=== PATIENT | female | born 1990 | race Caucasian/White ===

== ENCOUNTER 2023-06-21 02:25 | Day surgery (SDC) | payer OTHER, MEDICAID, SELFPAY ==
[2023-06-18 09:23] VITALS: BMI 23.1
--- NOTE | 2023-06-18 09:24 | PC.NURSE ---
Report to the Outpatient Waiting Room, entrance under the green pavilion located off [facility], at time _0600_ on date _[id number]_. Planned Procedure Time: _0730_. Time changes happen often and if your time is changed the preop area will call you the afternoon before. - You and your visitor will be asked to self-screen and do not enter if you have any COVID symptoms. - A mask is optional within the hospital at this time. Patients may have clear liquids (water, carbonated beverages, clear teas, apple juice) until 3 hours prior to surgery with a maximum of 20 ounces. - No food from midnight until time of surgery Take the following medications with a SIP of water the morning of surgery: ____Levothyroxine DO NOT STOP ANY OF YOUR OTHER PRESCRIPTION MEDICATIONS PRIOR TO SURGERY ?EXCEPT THE FOLLOWING Medications to discontinue per physician ____None Date to take last dose Please no make-up, nail macedonian, hairspray, perfume, deodorant, or body powder the day of surgery. No jewelry (including any body piercings) or valuables the day of surgery, leave them at home. Please take a shower or bath the night before, or the morning of, surgery with an antibacterial soap. Wear comfortable, loose fitting clothing. - Jewelry must be removed prior to entering the operating room. Rings and piercings that are not removed may be cut off. - The hospital will not accept responsibility for valuables. - Please leave all valuables, including medications, at home the day of surgery. If you are going home after surgery, a licensed tier truck driver must drive you home. - NO public transportation without another adult if you receive anesthesia. - We recommend that an adult stay with you for 24 hours following discharge. - We also recommend that you do not drive, make important decision, drink alcoholic beverages, or take any drugs that were not prescribed by your health care provider for at least 24 hours after your discharge time. Follow any additional instructions given to you from your surgeon. If you or anyone in your household have experienced Covid symptoms in the past week, please notify your surgeon or the nurse liaison at the phone number below for possible testing. Telephone instructions given to _Deana__and asked if any additional questions and then verbalized understanding. Patient advised to call surgeon office or pre surgery nurse liaison [phone] if any additional questions.
--- NOTE | 2023-06-20 13:04 | P.PNAN_ITS ---
Anes - Initial Pre Proc Eval Procedure: Operation Date: 06/21/23 07:30 Proposed Procedures p Diagnostic Laparoscopy with Bilateral Salpingectomy - Maria De Jesus Bartholomew DO Date/Time: 06/20/23 13:04 Surgeon: Maria De Jesus Bartholomew DO Pre Op Diagnosis: [facility] Surgical Sterilizaton Patient Data Age: 33 Gender: F Height: 1.73 m Weight: 69 kg Allergies Allergy/AdvReac Type Severity Reaction Status Date / Time ciprofloxacin Allergy Intermediate HIVES Verified 06/21/23 06:09 amoxicillin Allergy Mild Hives Verified 06/21/23 06:09 Penicillins Allergy Mild HIVES Verified 06/21/23 06:09 Home Medications Medication Instructions Recorded Confirmed Type levothyroxine 75 mcg tablet 75 mcg PO DAILY 06/18/23 06/21/23 History sertraline 50 mg tablet 50 mg PO DAILY 06/18/23 06/21/23 History Patient hx anesthesia problems: none Family hx anesthesia problems: none Results Review: All pre-operative results and documents have been reviewed as part of the pre- operative evaluation. [facility] Past Medical History Medical History (Updated 06/20/23 @ 13:04 by Vern Crump DO) Hypothyroidism Social History Social History Years smoked: 14 Smoking status: Former smoker Smoking end date: 07/19/22 Living arrangements: with family Spiritual care concerns: No Anes - Eval Final PreProcedure Day of Procedure 06/20/23 13:04 Patient weight: normal Heart: regular rate and rhythm Lungs: clear to auscultation Airway: Mallampati scale class 1 Neurological: alert and oriented Last oral intake: >/= 8 hours ASA classification: II Emergent: no Anesthetic plan: proceed Anesthesia type and monitoring: general ETT and standard monitoring Results Review: All pre-operative results and documents have been reviewed as part of the pre- operative evaluation. Informed Consent: The patient's anesthetic plan and its attendant risks and benefits were discu ssed with the patient/family/POA. Questions were solicited and answers provided to the satisfaction of the patient/family/POA.
[2023-06-21] VITALS (11 sets, daily range): BP systolic 111–130; BP diastolic 69–94; PULSE 59–79; RESP 12–19; TEMP 36.1–36.9; O2SAT 99–100
[2023-06-21] MEDS: ACETAMINOPHEN 500 MG TABLET 1000 MG PO (06:39)
[2023-06-21] MEDS: GABAPENTIN 300 MG CAPSULE PO (06:39)
[2023-06-21] MEDS: LACTATED RINGERS 1,000 ML 30 ML IV CONT ×2 (06:39→08:12)
--- NOTE | 2023-06-21 07:09 | WPDHPUPDATE1 ---
History and Physical Update Update Date/Time: 06/21/23 07:09 History and Physical has been reviewed, including an updated exam of the patient. There are NO changes in the patient's condition. Risks, benefits, and alternatives have been discussed and questions answered. Patient agrees to proceed with procedure.
--- NOTE | 2023-06-21 07:09 | PM.IMHP ---
H&P: HPI History of Present Illness Date/Time: 06/21/23 07:09 Chief Complaint: I'm here for have my tubes out Narrative: Zara presents desiring permanent sterilization with diagnostic laparoscopy, bilateral salpingectomy. Review of Systems Review of Systems: All systems reviewed & are unremarkable except as noted in HPI and below PMFSH Past Medical History Medical History Hypothyroidism Social History Social History Years smoked: 14 Smoking status: Former smoker Smoking end date: 07/19/22 Living arrangements: with family Spiritual care concerns: No Meds Home Medications and Allergies Home Medications Medication Instructions Recorded Confirmed Type levothyroxine 75 mcg tablet 75 mcg PO DAILY 06/18/23 06/21/23 History sertraline 50 mg tablet 50 mg PO DAILY 06/18/23 06/21/23 History Allergies Allergy/AdvReac Type Severity Reaction Status Date / Time ciprofloxacin Allergy Intermediate HIVES Verified 06/21/23 06:09 amoxicillin Allergy Mild Hives Verified 06/21/23 06:09 Penicillins Allergy Mild HIVES Verified 06/21/23 06:09 Vital Signs Vital Signs - 24 hr 06/21/23 06:15 Temperature 36.9 C Pulse Rate 79 Respiratory Rate 16 Blood Pressure 130/70 Pulse Oximetry 99 Oxygen Delivery Room Air Assessment and Plan Assessment and plan (1) Sterilization: Code(s): Z30.2 - Encounter for sterilization Status: Acute Plan Diagnostic laparoscopy, bilateral salpingectomy
[2023-06-21] MEDS: BUPivacaine HCL 0.25% PF 30 ML VIAL 21 ML INFILTRATE (08:03)
--- NOTE | 2023-06-21 08:08 | W.PM.PROC2 ---
Procedure Note - Detailed Date of Procedure 06/21/23 Pre-op Diagnosis Desire Surgical Sterilizaton Post-op Diagnosis Same Procedure Performed Diagnostic laparoscopy, bilateral salpingectomy Surgeon Maria De Jesus Bartholomew, DO Anesthesia General Findings Normal vulva and vaginal canal. Medium cervix, uterus sounded to 7cm. Internally, the stomach, liver and intestines were normal. The uterus, tubes and ovaries were normal. there was a small right paratubal cyst that was drained in order to allow removal. Description of Procedure Patient was taken to the operating room where she was placed under general anesthesia. She was prepped and draped in the normal sterile fashion in dorsal lithotomy position. A time-out was performed. No preoperative antibiotics were indicated. Speculum was placed in vagina cervix was visualized. The posterior cervix was grasped with a long Allis clamp. The cervix was sequentially dilated up to accommodate a disposable uterine manipulator. Uterus was sounded to 7 cm. Manipulator was placed, the Allis was removed as was the speculum. Gloves were changed and attention was then turned to the abdomen. The skin below the umbilicus was grasped with 2 penetrating towel clamps. The area was injected with local and a small incision was made. A Veress needle was introduced and saline water drop test was performed. CO2 insufflation was started and the abdomen was brought to a filling pressure of 15 mmHg. Once the abdomen was insufflated, the Veress needle was replaced with a 5 mm trocar which was inserted under direct visualization. Survey of the abdomen and pelvis revealed the above-mentioned findings. Additional port sites in the right and left lower quadrants were injected and incised. 5 mm trocars were inserted under direct visualization. The patient was then placed in steep Trendelenburg position. The right tube was elevated and the paratubal cyst was ruptured. The tube was cauterized and transected off using LigaSure device. The tube was removed through the port. The procedure was repeated in an identical fashion on the left-hand side. Survey of the pedicles revealed good hemostasis. There were no suspicious lesions or abnormalities in the pelvis. The trocars were removed and the gas was allowed to escape. The abdominal incisions were injected with additional local and were closed with 4-0 Monocryl in a subcuticular fashion. The patient was extubated and was taken to the recovery room in stable condition. All instrument and sponge counts were correct at the conclusion of the procedure. Estimated Blood Loss 5 Drains No Packing No Pathology Yes Complications No immediate complications Condition Stable Disposition PACU
--- NOTE | 2023-06-21 08:47 | SUR.PHASEI ---
Simple mask removed at 0847.
[2023-06-21] MEDS: oxyCODONE HCL (*CRX) 5 MG TAB IR PO (10:09)
== END 2023-06-21 10:48 | disposition home or self-care (01) ==
PROVIDERS: Visit Provider Obstetrics & Gynecology Gynecologic Oncology
PROC: (CPT 49320; principal; 2023-06-21 07:30)
DX: Z30.2 Encounter for sterilization (principal); N83.8 Other noninflammatory disorders of ovary, fallopian tube and broad ligament; E03.9 Hypothyroidism, unspecified; Z87.891 Personal history of nicotine dependence
CPT/HCPCS: 58661; 88302; A9270; J1100; J2250; J2405; J2704; J3010; J7030; J7120